=== PATIENT | female | born 1990 | race Caucasian/White ===

== ENCOUNTER 2017-03-06 19:45 | Emergency (ER) | payer MEDICAID ==
[2017-03-06 22:38] LABS: BASOPHIL % 0.3 % (0-2); PLATELET COUNT 201 x10^3mcL (130-400)
[2017-03-06 22:43] LABS: RED CELL DISTRIBUTION WIDTH 16.5 % (11.5-14.5)
[2017-03-06 22:46] LABS: CALCIUM 9.3 mg/dL (8.5-10.1); CARBON DIOXIDE 26.6 mmol/L (21-32); CHLORIDE SERUM 100 mmol/L (98-107); CREATININE SERUM 0.9 mg/dL (0.6-1.0); GFR1 > 60 mL/min; GLUCOSE SERUM 106 mg/dL (74-106); POTASSIUM SERUM 3.9 mmol/L (3.5-5.1); SODIUM SERUM 137 mmol/L (136-145)
[2017-03-06 23:04] LABS: ALBUMIN 4.1 g/dL (3.4-5.0); ALKALINE PHOSPHATASE 78 U/L (46-116); ALT/SGPT 16 U/L (14-59); AST/SGOT 16 U/L (15-37); BILIRUBIN TOTAL 0.73 mg/dL (0.20-1.00); TOTAL PROTEIN, SERUM 8.4 g/dL (6.4-8.2)
[2017-03-07 00:42] VITALS: BP 110/68
== END 2017-03-07 00:42 | disposition home or self-care (01) ==
LOC: ED 19:45
PROVIDERS: Emergency Medicine
DX: N83.202 Unspecified ovarian cyst, left side (principal); N39.0 Urinary tract infection, site not specified; Z88.0 Allergy status to penicillin; Z88.8 Allergy status to other drugs, medicaments and biological substances
CPT/HCPCS: J1170; J2405

== ENCOUNTER 2017-08-23 18:07 | Emergency (ER) | payer OTHER ==
[~2017-08-23] VITALS: Ht 167.6 cm; Wt 66.7 kg
[2017-08-23 18:16] VITALS: Ht 167.6 cm; Wt 66.7 kg
[2017-08-23 19:07] LABS: BASOPHIL % 0.3 % (0-2); PLATELET COUNT 238 x10^3mcL (130-400); RED CELL DISTRIBUTION WIDTH 14.8 % (11.5-14.5)
[2017-08-23 19:14] LABS: CALCIUM 7.7 mg/dL (8.5-10.1); CARBON DIOXIDE 22.3 mmol/L (21-32); CHLORIDE SERUM 107 mmol/L (98-107); CREATININE SERUM 0.7 mg/dL (0.6-1.0); GFR1 > 60 mL/min; GLUCOSE SERUM 89 mg/dL (74-106); POTASSIUM SERUM 3.2 mmol/L (3.5-5.1); SODIUM SERUM 140 mmol/L (136-145)
[2017-08-23 19:26] LABS: ALKALINE PHOSPHATASE 78 U/L (46-116); ALT/SGPT 10 U/L (14-59); AMYLASE 63 U/L (25-115); AST/SGOT 13 U/L (15-37); BILIRUBIN TOTAL 0.16 mg/dL (0.20-1.00); CHOLESTEROL 192 mg/dL (<200); LIPASE 156 IU/L (73-393); T4(THYROXINE) 9.5 ug/dL (4.7-13.3)
[2017-08-23 19:27] LABS: ALBUMIN 2.4 g/dL (3.4-5.0); HDL CHOLESTEROL 62 mg/dL (40-60)
[2017-08-23 19:42] LABS: microscopic required? YES; urine erythrocyte NEGATIVE (NEGATIVE)
[2017-08-23 22:11] VITALS: BP 97/59
== END 2017-08-23 22:11 | disposition home or self-care (01) ==
LOC: ED 18:07
PROVIDERS: Emergency Medicine
DX: O99.013 Anemia complicating pregnancy, third trimester (principal); D50.9 Iron deficiency anemia, unspecified; O25.13 Malnutrition in pregnancy, third trimester; E87.6 Hypokalemia; Z3A.28 28 weeks gestation of pregnancy; Z88.1 Allergy status to other antibiotic agents; Z88.8 Allergy status to other drugs, medicaments and biological substances
CPT/HCPCS: 83880; J7030; Q0092

== ENCOUNTER 2018-03-05 00:16 | Emergency (ER) | payer OTHER ==
[2018-03-05 00:28] VITALS: Ht 167.6 cm
[2018-03-05 01:41] LABS: ALBUMIN 3.6 g/dL (3.4-5.0); ALKALINE PHOSPHATASE 81 U/L (46-116); ALT/SGPT 17 U/L (14-59); AST/SGOT 13 U/L (15-37); BILIRUBIN TOTAL 0.25 mg/dL (0.20-1.00); CALCIUM 8.4 mg/dL (8.5-10.1); CARBON DIOXIDE 25.7 mmol/L (21-32); CHLORIDE SERUM 107 mmol/L (98-107); CREATININE SERUM 0.8 mg/dL (0.6-1.0); GFR1 > 60 mL/min; GLUCOSE SERUM 109 mg/dL (74-106); LIPASE 179 IU/L (73-393); POTASSIUM SERUM 3.8 mmol/L (3.5-5.1); SODIUM SERUM 142 mmol/L (136-145); TOTAL PROTEIN, SERUM 7.6 g/dL (6.4-8.2)
[2018-03-05 01:48] LABS: BASOPHIL % 0.6 % (0-2); PLATELET COUNT 282 x10^3mcL (130-400)
[2018-03-05 02:22] VITALS: BP 102/63
== END 2018-03-05 02:51 | disposition home or self-care (01) ==
LOC: ED 00:16
PROVIDERS: Emergency Medicine
DX: K29.00 Acute gastritis without bleeding (principal); D64.9 Anemia, unspecified; Z88.0 Allergy status to penicillin; Z88.1 Allergy status to other antibiotic agents
CPT/HCPCS: 36415; Q0092

== ENCOUNTER 2018-06-24 11:27 | Emergency (ER) | payer OTHER ==
[~2018-06-24] VITALS: Ht 170.2 cm; Wt 60.8 kg
[2018-06-24 12:34] VITALS: BP 139/77; Ht 170.2 cm; Wt 60.8 kg
== END 2018-06-24 14:24 | disposition home or self-care (01) ==
LOC: ED 11:27
DX: L03.213 Periorbital cellulitis (principal); Z88.0 Allergy status to penicillin; Z86.2 Personal history of diseases of the blood and blood-forming organs and certain disorders involving the immune mechanism; Z88.1 Allergy status to other antibiotic agents

== ENCOUNTER 2018-06-26 11:00 | Emergency (ER) | payer OTHER ==
[~2018-06-26] VITALS: Ht 170.2 cm; Wt 60.3 kg
[2018-06-26 11:13] VITALS: BP 100/66; Ht 170.2 cm; Wt 60.3 kg
== END 2018-06-26 11:44 | disposition home or self-care (01) ==
LOC: ED 11:00
DX: T36.95XA Adverse effect of unspecified systemic antibiotic, initial encounter (principal); Z88.0 Allergy status to penicillin; Z88.1 Allergy status to other antibiotic agents; Z98.890 Other specified postprocedural states; Y92.89 Other specified places as the place of occurrence of the external cause